=== PATIENT | female | born 1945 | race African-American/Black ===

== ENCOUNTER 2017-08-17 17:39 | Emergency (ER) | payer MEDICARE, BC ==
[~2017-08-17] VITALS: Ht 160 cm; Wt 53.1 kg
[2017-08-17 17:45] VITALS: BP 115/67
== END 2017-08-17 19:00 | disposition home or self-care (01) ==
LOC: ER 17:44
DX: S52.502A Unspecified fracture of the lower end of left radius, initial encounter for closed fracture (principal); S52.615A Nondisplaced fracture of left ulna styloid process, initial encounter for closed fracture; Z85.43 Personal history of malignant neoplasm of ovary; W19.XXXA Unspecified fall, initial encounter; Y93.89 Activity, other specified; Y92.89 Other specified places as the place of occurrence of the external cause; Y99.8 Other external cause status; Z90.710 Acquired absence of both cervix and uterus; Z91.041 Radiographic dye allergy status
CPT/HCPCS: 73110; A4606; Z7610

== ENCOUNTER 2019-05-24 16:35 | Inpatient (IN) | payer MEDICARE, BC ==
[~2019-05-24] VITALS: Ht 160 cm; Wt 52.6 kg
--- NOTE | 2019-05-24 16:45 | NUR ---
PT BIBFAMILY FOR COUGH AND CHILLS; PT AAOX4, -SOB, NAD NOTED, VSS, PENDING MD MARIN
[2019-05-24] MEDS ORDERED: ALBUTEROL FS 2.5 MG/3 ML VIAL.NEB ONE (17:37)
[2019-05-24] MEDS ORDERED: ALBUTEROL FS 2.5 MG/3 ML VIAL.NEB NEB ONE (18:00)
[2019-05-24] MEDS ORDERED: PIPERACILLIN /TAZOBACTAM 3.375 G in IV D5W 50 ML IV ONE (18:30)
[2019-05-24] MEDS ORDERED: IV NS 0.9% 1,000 ML BAG IV ONE (18:30)
[2019-05-24] MEDS ORDERED: LEVOFLOXACIN 750 MG /D5W 150ML 150 ML IV ONE (18:41)
[2019-05-24 18:47] LABS: BASOPHILS % (AUTO) 0.4 % (0.0-2.0); EOSINOPHILS % (AUTO) 0.4 % (0.0-6.0); HEMATOCRIT 38 % (33-45); HEMOGLOBIN 12.4 g/dL (11.5-14.8); LYMPHOCYTES # (AUTO) 0.8 /CMM (0.8-4.8); LYMPHOCYTES % (AUTO) 11.1 % (20.0-44.0); MEAN CORPUSCULAR HGB CONC 33 g/dl (31.0-36.0); MEAN CORPUSCULAR VOLUME 83 fL (82-100); MONOCYTES # (AUTO) 0.8 /CMM (0.1-1.30); MONOCYTES % (AUTO) 11.3 % (2.0-12.0); NEUTROPHILS # (AUTO) 5.3 /CMM (1.8-8.9); NEUTROPHILS % (AUTO) 76.8 % (43.0-81.0); PLATELET COUNT (AUTO) 421 /CMM (150-450); WHITE BLOOD COUNT (AUTO) 6.9 K/uL (4.3-11.0)
[2019-05-24 18:55] LABS: CALCIUM, SERUM 9.6 mg/dL (8.5-10.1); CARBON DIOXIDE 28 mmol/L (21-32); CHLORIDE 97 mmol/L (98-107); CREATININE 0.7 mg/dL (0.6-1.3); GLUCOSE 105 mg/dL (74-106); POTASSIUM 3.4 mmol/L (3.5-5.1); SODIUM SERUM 132 mmol/L (136-145); UREA NITROGEN, BLOOD 13 mg/dL (7-18)
[2019-05-24] MEDS ORDERED: LEVOFLOXACIN 750 MG /D5W 150ML PIGGYBACK IV ONE (19:00)
[2019-05-24 19:07] LABS: B-TYPE NATRIURETIC PEPTIDE 228 PG/ML (0-125)
[2019-05-24 20:19] LABS: BILIRUBIN,DIRECT 0.2 mg/dL (0.0-0.2); BILIRUBIN,TOTAL 0.4 mg/dL (0.2-1.0)
--- NOTE | 2019-05-24 20:31 | NUR ---
CALLED NURSING SUP FOR TELE BED
--- NOTE | 2019-05-24 20:47 | NUR ---
106 TELE Addendum: 05/24/19 at 2047 by KATHY 103 TELE
--- NOTE | 2019-05-24 20:54 | NUR ---
ATTEMPTED TO GIVE REPORT TO 103, NURSE WILL RETURN CALL
--- NOTE | 2019-05-24 21:07 | NUR ---
GAVE REPORT TO GILBERT MENDOZA FOR NE
[2019-05-24 21:20] VITALS: BP 116/54
--- NOTE | 2019-05-24 21:30 | NUR ---
JOSE RN NOTES RECEIVED REPORT FROM TEAM ASSEMBLER BOO. RECEIVED PATIENT ON GURNEY AND PLACED IN ROOM 103. PATIENT IS A/A/OX4, VERBAL . PATIENT IS PLACED ON ELEVATOR OPERATOR FREIGHT WITH SR/ST103. PATIENT HAS [address] INTACT W/O ANY LEAKAGE. SKIN IS INTACT. RIGHT AC G18 IV LINE IS PATIENT AND INTACT. NO COMPLAIN OF SOB, NO PAIN, NO DISCOMFORT AT THIS TIME. ALL SAFETY MEASURES ARE IMPLEMENTED, BED IN LOW, LOCKED POSITION, CALL LIGHT IN REACH. WILL CONTINUE TO MONITOR PATIENT CLOSELY.
[2019-05-24] MEDS ORDERED: ONDANSETRON HCL/PF 4 MG/2 ML VIAL IVP PRN (23:00)
[2019-05-24] MEDS ORDERED: ZOLPIDEM TARTRATE 5 MG TABLET PO PRN (23:00)
[2019-05-24] MEDS ORDERED: MAGNESIUM HYDROXIDE 30 ML UDC PO PRN (23:00)
[2019-05-24] MEDS ORDERED: Z GUARD REMEDY 2 OZ OINT TP PRN (23:00)
[2019-05-24] MEDS ORDERED: MAG HYDROX/AL HYDROX/SIMETH 30 ML UDC PO PRN (23:00)
[2019-05-24] MEDS ORDERED: ACETAMINOPHEN 325 MG TABLET PO PRN (23:00)
[2019-05-24] MEDS ORDERED: HYDROCODONE/APAP 5/325MG 1 EACH TABLET PO PRN (23:00)
--- NOTE | 2019-05-24 23:00 | NUR ---
RN NOTES PATIENT HAS MERREM IV 1G SCHEDULED AT 0500. PATIENT HAS AN ALLERGY ON PENICILLINS . CALLED MD REDMOND TO VERIFY THE ORDER AND HE SAID THAT HE IS AWARE OF IT AND WANTS THE MEDICATION TO BE ADMINISTERED ORDERED. CALLED [facility] AND MEDICATION HAS BEEN VERIFIED. WILL ADMINISTER MEDICATION ON TIMELY MANNERS. WILL CONTINUE TO MONITOR PATIENT CLOSELY.
[2019-05-25] VITALS: BP 111/46
[2019-05-25] MEDS ORDERED: VANCOMYCIN 1 GM in IV D5W 250ml IV ONE (00:30)
[2019-05-25] MEDS ORDERED: VANCOMYCIN 1 GM VIAL ONE (00:37)
[2019-05-25] MEDS: IV NS 0.9% 1,000 ML IV PRN ×2 (00:48→21:10)
[2019-05-25 04:00] VITALS: BP 104/52
[2019-05-25] MEDS ORDERED: MEROPENEM 1 G VIAL IV ONE (05:32)
[2019-05-25] MEDS: MEROPENEM 1 G in IV NS 0.9% 100 ML IV SCH ×3 (05:46→21:10)
[2019-05-25 06:46] LABS: BASOPHILS % (AUTO) 0.2 % (0.0-2.0); EOSINOPHILS % (AUTO) 0.7 % (0.0-6.0); HEMATOCRIT 34 % (33-45); HEMOGLOBIN 11.1 g/dL (11.5-14.8); LYMPHOCYTES # (AUTO) 0.7 /CMM (0.8-4.8); LYMPHOCYTES % (AUTO) 11.3 % (20.0-44.0); MEAN CORPUSCULAR HGB CONC 33 g/dl (31.0-36.0); MEAN CORPUSCULAR VOLUME 82 fL (82-100); MONOCYTES # (AUTO) 0.7 /CMM (0.1-1.30); MONOCYTES % (AUTO) 11.5 % (2.0-12.0); NEUTROPHILS # (AUTO) 4.8 /CMM (1.8-8.9); NEUTROPHILS % (AUTO) 76.3 % (43.0-81.0); PLATELET COUNT (AUTO) 378 /CMM (150-450); RED BLOOD CELL COUNT(AUTO) 4.16 MIL/uL (4.0-5.2); WHITE BLOOD COUNT (AUTO) 6.3 K/uL (4.3-11.0)
[2019-05-25 07:01] LABS: ALANINE AMINOTRANSFERASE 50 U/L (12-78); ALKALINE PHOSPHATASE 269 U/L (46-116); ASPARTATE AMINOTRANSFERASE 56 U/L (15-37); BILIRUBIN,TOTAL 0.4 mg/dL (0.2-1.0); CARBON DIOXIDE 29 mmol/L (21-32); CHLORIDE 103 mmol/L (98-107); CREATININE 0.7 mg/dL (0.6-1.3); GLUCOSE 99 mg/dL (74-106); MAGNESIUM 1.9 mg/dL (1.8-2.4); PHOSPHORUS 3.5 mg/dL (2.5-4.9); POTASSIUM 3.7 mmol/L (3.5-5.1); SODIUM SERUM 140 mmol/L (136-145); TOTAL PROTEIN, SERUM 6.2 g/dL (6.4-8.2); UREA NITROGEN, BLOOD 7 mg/dL (7-18)
--- NOTE | 2019-05-25 07:10 | NUR ---
CERAMIC PAINTER OPENING NOTES RECEIVED PT LYING ON BED,ALERT/ORIENTED X4.ON TELE HR IS 92 WITH SR.ON NC 2L CONTINUOUSLY,SATURATING WELL.NO SOB AND ACUTE DISTRESS NOTED.IV LINE IS ON RIGHT AC G18 WITH IV NS @75ML/HR.SITE IS CLEAN,DRY AND INTACT.NO INFILTRATION NOTED.BED IS IN LOW POSITION AND LOCKED.CALL LIGHT IS WITHIN REACH,WILL CONTINUE TO MONITOR THE PT CLOSELY.
[2019-05-25 07:11] LABS: CHOLESTEROL 127 mg/dL (<200); HDL CHOLESTEROL 26 mg/dL (40-60); LDL 84 mg/dL (0-99); TRIGLYCERIDES 91 mg/dL (30-150)
[2019-05-25 08:00] VITALS: BP 101/53
[2019-05-25] MEDS ORDERED: FEE PK DOSING 1 MIN EA MC ONE (09:08)
--- NOTE | 2019-05-25 11:45 | NUR ---
MS RN NOTES PT IS AMBULATED IN THE HALLWAY WITH MINIMAL SUPERVISION,TOLERATING WELL WITHOUT O2.SATURATING WELL.NO SOB AND ACUTE DISTRESS NOTED.
[2019-05-25 16:00] VITALS: BP 107/50
[2019-05-25] MEDS ORDERED: VANCOMYCIN 1 GM in IV D5W 250 ML IV SCH (18:00)
--- NOTE | 2019-05-25 18:40 | NUR ---
MS RN CLOSING NOTES PT IS ON BED,ALERT/ORIENTED X4.IV LINE IS ON RIGHT AC G18 WITH IV FLUIDS RUNNING.SITE IS CLEAN AND DRY.RESPIRATION IS EVEN AND NONLABORED.ON NC 2L CONTINUOUSLY.ALL DUE MEDS ARE GIVEN.ENDORSED TO PAINT AND TABLE EDGER RN FOR NE.
[2019-05-25 20:00] VITALS: BP 103/39
[2019-05-26 04:00] VITALS: BP 104/40
--- NOTE | 2019-05-26 04:11 | NUR ---
MS-1/BOOK CLEANER RIGHT AC INFILTRATED. IV REMOVED WITH CATH TIP INTACT. NEW LINE PLACED ON LEFT HAND #20 BY ADAM MENDOZA. PT TOLERATED WELL. WILL CONTINUE TO MONITOR.
[2019-05-26] MEDS: MEROPENEM 1 G in IV NS 0.9% 100 ML IV SCH (05:26)
[2019-05-26 07:36] LABS: BASOPHILS % (AUTO) 0.4 % (0.0-2.0); EOSINOPHILS % (AUTO) 2.1 % (0.0-6.0); HEMATOCRIT 34 % (33-45); HEMOGLOBIN 10.9 g/dL (11.5-14.8); LYMPHOCYTES # (AUTO) 0.8 /CMM (0.8-4.8); LYMPHOCYTES % (AUTO) 13.9 % (20.0-44.0); MEAN CORPUSCULAR HGB CONC 32 g/dl (31.0-36.0); MEAN CORPUSCULAR VOLUME 82 fL (82-100); MONOCYTES # (AUTO) 0.6 /CMM (0.1-1.30); MONOCYTES % (AUTO) 11.2 % (2.0-12.0); NEUTROPHILS # (AUTO) 4.1 /CMM (1.8-8.9); NEUTROPHILS % (AUTO) 72.4 % (43.0-81.0); PLATELET COUNT (AUTO) 397 /CMM (150-450); RED BLOOD CELL COUNT(AUTO) 4.11 MIL/uL (4.0-5.2); WHITE BLOOD COUNT (AUTO) 5.7 K/uL (4.3-11.0)
[2019-05-26] MEDS ORDERED: IV NS 0.9% 1,000 ML IV STA (07:43)
[2019-05-26 07:57] LABS: ALANINE AMINOTRANSFERASE 38 U/L (12-78); ALBUMIN 1.9 g/dL (3.4-5.0); ALKALINE PHOSPHATASE 228 U/L (46-116); ASPARTATE AMINOTRANSFERASE 38 U/L (15-37); BILIRUBIN,TOTAL 0.4 mg/dL (0.2-1.0); CALCIUM, SERUM 8.6 mg/dL (8.5-10.1); CARBON DIOXIDE 28 mmol/L (21-32); CHLORIDE 104 mmol/L (98-107); CREATININE 0.6 mg/dL (0.6-1.3); GLUCOSE 94 mg/dL (74-106); MAGNESIUM 1.8 mg/dL (1.8-2.4); PHOSPHORUS 2.5 mg/dL (2.5-4.9); POTASSIUM 3.8 mmol/L (3.5-5.1); SODIUM SERUM 140 mmol/L (136-145); TOTAL PROTEIN, SERUM 5.9 g/dL (6.4-8.2); UREA NITROGEN, BLOOD 4 mg/dL (7-18)
[2019-05-26 08:00] VITALS: BP 107/38
--- NOTE | 2019-05-26 09:15 | NUR ---
pt in bed on 2l o2 nc. pt vss no signs of acute distress. pt denies pain no acute distress noted no labored breathing noted. pt monitoring ongoing
[2019-05-26] MEDS ORDERED: AZIT250T13 PO (14:02)
--- NOTE | 2019-05-26 16:00 | NUR ---
pt dc home accompany by rn and family member. pt verbalize understanding of pt teachingpt given packet of dc instructions. no acute distress noted.
== END 2019-05-26 16:50 | disposition home or self-care (01) | DRG 193 ==
LOC: ER 16:37 → TELE1 20:52 → MEDSG1 05-25 08:45
PROVIDERS: ADMIT Internal Medicine; ATTEND Registered Nurse
DX: J15.9 Unspecified bacterial pneumonia (principal); J96.01 Acute respiratory failure with hypoxia; E87.1 Hypo-osmolality and hyponatremia; E87.6 Hypokalemia; R91.8 Other nonspecific abnormal finding of lung field; Z85.44 Personal history of malignant neoplasm of other female genital organs; Z85.43 Personal history of malignant neoplasm of ovary; R74.0 Nonspecific elevation of levels of transaminase and lactic acid dehydrogenase [LDH]; Z93.3 Colostomy status; Z93.6 Other artificial openings of urinary tract status; J20.9 Acute bronchitis, unspecified; J06.9 Acute upper respiratory infection, unspecified; Z88.0 Allergy status to penicillin; D64.9 Anemia, unspecified
CPT/HCPCS: 36415; 71045-TC; 71250-TC; 80048-TC; 80053-TC; 80061-TC; 82247-TC; 82248-TC; 83605-TC; 83735-TC; 83880; 84100-TC; 84484-TC; 85025-TC; 87040-TC; 87070-TC; 87081-TC; G0378; J1956; J2185; J2543; J3370; J7030; J7060